=== PATIENT | male | born 2000 | race Caucasian/White ===

== ENCOUNTER 2021-12-16 23:27 | Outpatient (CLI) | payer OTHER, SELFPAY | END 2021-12-16 23:28 | disposition home or self-care (01) | LOC: AMB 01-03 02:18 | PROVIDERS: Visit Provider Family Medicine | DX: R41.82 Altered mental status, unspecified (principal); T40.904A Poisoning by unspecified psychodysleptics [hallucinogens], undetermined, initial encounter | CPT/HCPCS: A0425; A0427 ==

== ENCOUNTER 2021-12-16 23:50 | Emergency (ER) | payer OTHER, SELFPAY ==
[2021-12-17 00:10] VITALS: BP 128/80; PULSE 132; RESP 14; TEMP 37.7; O2SAT 98; BMI 21.5
--- NOTE | 2021-12-17 00:28 | ED.GENADULT ---
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 Reportedly ate some edibles tonight and has been altered since then. On my initial exam, says ?I diet any brought me back?. He has no complaints otherwise. Related Data Home Medications Medication Instructions Recorded Confirmed Unobtainable 12/17/21 12/17/21 Allergies Allergy/AdvReac Type Severity Reaction Status Date / Time Unable to Assess Allergy Unverified 12/17/21 00:10 Review of Systems Status of ROS: Reports: 10 or more systems reviewed and unremarkable except as noted in History and below Exam Narrative: Exam Narrative: General: Well-developed and well-nourished, no acute distress Head: Atraumatic and normocephalic Eyes: Pupils are equal reactive, extraocular motions intact, conjunctiva clear ENT: External nose and ears are normal, posterior pharynx without erythema or exudate Neck: No midline cervical tenderness, full spontaneous range of motion the neck, trachea midline, no adenopathy Heart: Tachycardic but regular Lungs: Clear to auscultation bilaterally without wheezes or crackles Abdomen: Soft, nontender, nondistended with active bowel sounds Musculoskeletal: No tenderness, deformity, or edema Neurologic: Awake, alert, confused and answers questions inappropriately, moves all extremities and follows commands Psych: Mood and affect are appropriate Skin: No rashes Const: Vital Signs, click to edit/add: Vital Signs - 24 hr 12/17/21 00:10 12/17/21 03:18 12/17/21 06:07 Temperature 99.9 F H 98.1 F 99.1 F Pulse Rate [Pulse Oximeter] 132 H 122 H 113 H Respiratory Rate 14 18 Blood Pressure [Le ft Upper Arm] 128/80 107/88 129/77 Pulse Oximetry 98 98 100 Oxygen Delivery Me thod Room Air Room Air Room Air Course Course Hospital Course: Patient seen examined, prior records reviewed. Differential diagnosis includes but not limited to drug ingestion, electrolyte disturbance, acute encephalopathy, meningitis, encephalitis. Patient presents with altered mentation after eating edibles tonight. No nuchal rigidity. He is tachycardic but also moving around a lot. Will monitor closely in the emergency department, plan on discharge when he clears. Reevaluation(s) Reevaluation #1: Patient was initially given Ativan 0.5 mg IV, however he has become a little bit more agitated now. Additional Ativan 1 mg IV is given. Time: 01:42 Reevaluation #2: Patient but awake, mentating appropriately, consider me why he is here, where he lives. Stable for discharge. Time: 06:09 Vital Signs Vital signs: Initial Vital Signs Temperature 99.9 F H 12/17/21 00:10 Temperature Source Temporal Artery Scan 12/17/21 00:10 Pulse Rate 132 H 12/17/21 00:10 Respiratory Rate 14 12/17/21 00:10 Blood Pressure 128/80 12/17/21 00:10 Blood Pressure Mean 96 12/17/21 00:10 Pulse Oximetry 98 12/17/21 00:10 Oxygen Delivery Method 12/17/21 00:10 Vital Signs Temperature 99.9 F H 12/17/21 00:10 Pulse Rate 132 H 12/17/21 00:10 Respiratory Rate 14 12/17/21 00:10 Blood Pressure 128/80 12/17/21 00:10 Pulse Oximetry 98 12/17/21 00:10 Oxygen Delivery Method 12/17/21 00:10 Temperature 99.1 F 12/17/21 06:07 Pulse Rate 113 H 12/17/21 06:07 Respiratory Rate 18 12/17/21 06:07 Blood Pressure 129/77 12/17/21 06:07 Pulse Oximetry 100 12/17/21 06:07 Oxygen Delivery Method 12/17/21 06:07 Medical Decision Making Medical Records Medical records reviewed: Yes I reviewed the patient's medical records Lab Data Lab results reviewed: Yes I reviewed the patient's lab results Labs: Lab Results 12/17/21 Range/Units 03:10 Urine Opiates Screen Negative (Negative) Ur Oxycodone Screen Negative (Negative) Urine Methadone Screen Negative (Negative) Ur Propoxyphene Screen Negative (Negative) Ur Barbiturates Screen Negative (Negative) U Tricyclic Antidepress Negative (Negative) Ur Phencyclidine Scrn Negative (Negative) Ur Amphetamines Screen Negative (Negative) U Methamphetamines Scrn Negative (Negative) U Benzodiazepines Scrn Negative (Negative) Urine Cocaine Screen Negative (Negative) U Marijuana (THC) Screen POSITIVE A* (Negative) Ur Drug Screen Comment See Note Discharge Plan Discharge Clinical Impression: Acute drug intoxication Patient Disposition: Home, Self-Care Condition: Improved Instructions: Acute Delirium (ED) Additional Instructions: Do not use any drugs or alcohol for the next 48 hours Discharge Diet: Regular Prescriptions: No Action Unobtainable Stand Alone Forms: [facility] Info Instructions
[2021-12-17] MEDS: LORazepam 2 MG/ML inj 0.5 MG IVP (00:48)
[2021-12-17] MEDS: LORazepam 2 MG/ML inj 1 MG IVP (01:48)
[2021-12-17 03:18] VITALS: BP 107/88; PULSE 122; TEMP 36.7; O2SAT 98
[2021-12-17 03:28] LABS: Amphetamine Screen Urine Negative (Negative); Barbiturate Screen Urine Negative (Negative); Benzodiazepines Screen Urine Negative (Negative); Cocaine Screen Urine Negative (Negative); Methadone Screen Urine Negative (Negative); Methamphetamines Screen Urine Negative (Negative); Opiate Screen Urine Negative (Negative); Oxycodone Screen Urine Negative (Negative); Phencyclidine Screen Urine Negative (Negative); Tricyclic Antidepressant Urine Negative (Negative)
[2021-12-17 03:31] LABS: Cannabinoid Screen Urine POSITIVE (Negative)
[2021-12-17 06:07] VITALS: BP 129/77; PULSE 113; RESP 18; TEMP 37.3; O2SAT 100
--- NOTE | 2021-12-17 12:17 | ED.NURSE ---
Pt's mom called stating that she had a voicemail that pt was in the ER. Wondering if he was still in the ER. Notified that pt was no longer in ED. Mom will call pt.
== END 2021-12-17 06:27 | disposition home or self-care (01) ==
PROVIDERS: Emergency Provider Family Medicine
DX: F12.921 Cannabis use, unspecified with intoxication delirium (principal)
CPT/HCPCS: 80306; 96374; 96376; 99283; 99284; J2060